=== PATIENT | female | born 1990 | race Caucasian/White ===

== ENCOUNTER 2018-04-09 08:29 | Day surgery (SDC) | payer MEDICAID ==
[~2018-04-09 08:29] MED LIST: Lactated Ringers 1,000 ML IV SCH
[2018-04-09] MEDS ORDERED: fentaNYL 100 MCG/2 ML SDV ONE (08:32)
[2018-04-09] MEDS ORDERED: Midazolam 1 MG/ML 2 ML SDV ONE (08:32)
[2018-04-09] MEDS ORDERED: Propofol 200 MG/20 ML SDV ONE (08:32)
[2018-04-09] MEDS ORDERED: Lidocaine 2% 5 ML SDV ONE (08:32)
--- NOTE | 2018-04-09 09:37 | PCM.PREANE ---
Preanesthetic Assessment - Anesthesia/Transfusion/Family Hx Anesthesia History: Prior Anesthesia Without Reaction Family History of Anesthesia Reaction: No Transfusion History: No Prior Transfusion(s) Intubation History: Unknown - Review of Systems General: No Symptoms Pulmonary: No Symptoms Cardiovascular: No Symptoms Neurological: No Symptoms Other: Reports: None - Physical Assessment NPO Status Date: 04/08/18 O2 Sat by Pulse Oximetry: 97 Respiratory Rate: 16 Vital Signs: Last Vital Signs Temp 36.2 C 04/09/18 09:15 Pulse 78 04/09/18 09:15 Resp 16 04/09/18 09:15 BP 125/81 04/09/18 09:15 Pulse Ox 97 04/09/18 09:15 Height: 1.57 m Weight: 86.183 kg ASA Class: 2 Mental Status: Alert & Oriented x3 Airway Class: Mallampati = 1 Dentition: Reports: Normal Dentition ROM/Head Extension: Full Lungs: Clear to Auscultation, Normal Respiratory Effort Cardiovascular: Regular Rate, Regular Rhythm - Lab Values: Laboratory Last Values Urine HCG, Qual NEGATIVE (NEGATIVE) 04/09/18 09:00 - Allergies Allergies/Adverse Reactions: Allergies Allergy/AdvReac Type Severity Reaction Status Date / Time latex Allergy Rash Verified 04/07/18 13:04 - Blood Blood Available: No - Anesthesia Plan Pre-Op Medication Ordered: None - Acknowledgements Anesthesia Type Planned: MAC Pt an Appropriate Candidate for the Planned Anesthesia: Yes Alternatives and Risks of Anesthesia Discussed w Pt/Guardian: Yes Pt/Guardian Understands and Agrees with Anesthesia Plan: Yes Additional Comments: PMH: IBS-C, PUD PLAN: MAC/TIVA PreAnesthesia Questionnaire HEENT History: Reports: Other (See Below) Other HEENT History: wears glasses Gastrointestinal History: Reports: Chronic Constipation, GERD Genitourinary History: Reports: None RN L AND D History: Reports: Endometriosis, Musculoskeletal History: Reports: None Neurological History: Reports: Migraines Psychiatric History: Reports: Anxiety, Depression Endocrine/Metabolic History: Reports: Obesity/BMI 30+ - Past Surgical History Head Surgeries/Procedures: Reports: None HEENT Surgical History: Reports: Adenoidectomy, Oral Surgery, Tonsillectomy GI Surgical History: Reports: Other (See Below) Other GI Surgeries/Procedures: I&D pilonidal cyst Female Surgical History: Reports: Section, LEEP, Other (See Below) Other Female Surgeries/Procedures: hx laparoscopy with lysis of adhesions Musculoskeletal Surgical History: Reports: Other (See Below) Other Musculoskeletal Surgeries/Procedures:: exc of rt ganglion cyst - SUBSTANCE USE Smoking Status *Q: Former Smoker Recreational Drug Use History: No - HOME MEDS Home Medications: Home Meds Lubiprostone [Amitiza] 8 mcg PO BID 01/08/18 [History] Dexlansoprazole [Dexilant] 60 mg PO DAILY 04/07/18 [History] Norethindrone-Ethinyl Estrad [Dasetta 1-35-28 Tablet] 1 tab PO DAILY 04/07/18 [ History] Vilazodone Hydrochloride [Viibryd] 40 mg PO DAILY 04/07/18 [History] - CURRENT (IN HOUSE) MEDS Current Meds: Current Medications Lactated Ringer's (Ringers, Lactated) 1,000 mls @ 125 mls/hr IV ASDIRECTED KHADIJAH Last Admin: 04/09/18 09:03 Dose: 125 mls/hr Discontinued Medications Fentanyl (Sublimaze) Confirm Administered Dose 100 mcg .ROUTE .STK-MED ONE Stop: 04/09/18 08:33 Lidocaine (Xylocaine-Mpf 2%) Confirm Administered Dose 5 ml .ROUTE .STK-MED ONE Stop: 04/09/18 08:33 Midazolam HCl (Versed 1 Mg/Ml) Confirm Administered Dose 2 mg .ROUTE .STK-MED ONE Stop: 04/09/18 08:33 Propofol (Diprivan 20 Ml) Confirm Administered Dose 400 mg .ROUTE .STK-MED ONE Stop: 04/09/18 08:33
--- NOTE | 2018-04-09 10:50 | PCM.OPNOTE ---
- General Post-Op/Procedure Note Date of Surgery/Procedure: 04/09/18 Operative Procedure(s): egd w bx Findings: see [id number] Pre Op Diagnosis: gerd Post-Op Diagnosis: Same Anesthesia Technique: Moderate Sedation Primary Surgeon: Carlos Davey Pathology: egd bx Complications: None Condition: Good
--- NOTE | 2018-04-09 10:55 | PCM.POSTAN ---
POST ANESTHESIA ASSESSMENT - MENTAL STATUS Mental Status: Alert, Oriented - RESPIRATORY Respiratory Status: Respiratory Rate WNL, Airway Patent, O2 Saturation Stable - CARDIOVASCULAR CV Status: Pulse Rate WNL, Blood Pressure Stable - GASTROINTESTINAL GI Status: No Symptoms - PAIN Pain Score: 0 - POST OP HYDRATION Hydration Status: Adequate & Stable
--- NOTE | 2018-04-09 13:20 | OR ---
SURGEON: Carlos Davey MD DATE OF PROCEDURE: 04/09/2018 PREOPERATIVE DIAGNOSES: 1. Acid reflux. 2. Abdominal pain. POSTOPERATIVE DIAGNOSES: 1. Acid reflux. 2. Abdominal pain. PROCEDURES PERFORMED: Esophagogastroduodenoscopy with biopsy. COMPLICATIONS: None. PROCEDURE IN DETAIL: EGD: The patient was taken to the endoscopy room, and with the [employer], Diprivan was administered. A well-lubricated EGD scope was gently inserted through the oropharynx, down the esophagus, passing through the gastroesophageal junction, into the stomach. The mucosa was examined upon the passage. Any etiology will be noted. Once in the stomach, we continued to advance to the distal antrum, passed through the pylorus into the second portion of the duodenum. Again, the mucosa was examined for any abnormality and etiology. The scope was then retrieved back to the stomach and then retroflexed to look at the fundus of the stomach. If a biopsy was indicated, we will biopsy the antrum, body, and gastroesophageal junction. The air will be sucked out while the scope is retrieved to reduce the patient's discomfort. The patient tolerated the procedure well. There were no intraoperative complications. Dr. Davey was present through the whole procedure. Prior to surgery, a time-out had been called, the patient identified, procedure identified and antibiotic administered. FINDINGS: 1. The patient is easily sedated with [employer] and Diprivan. The patient is soundly snoring. 2. Oropharynx and proximal esophagus are free of disease. The distal esophagus at GE junction shows salmon-colored change such as very mild acid reflux. Stomach rugae is normal in appearance, antrum is normal in appearance, and duodenum was grossly normal. Scope retrieved back to the stomach. Retroflexed look at the fundus of stomach, there was no hiatal hernia. Biopsy done at antrum, body, GE junction at 40 and sucked out the gas while scope coming out. NBA / KRYSTLE /[id number]
== END 2018-04-09 11:22 | disposition home or self-care (01) ==
LOC: MW.SDS 08:29
PROVIDERS: ATTEND Surgery
DX: K21.9 Gastro-esophageal reflux disease without esophagitis (principal); R10.13 Epigastric pain; F32.9 Major depressive disorder, single episode, unspecified; K58.9 Irritable bowel syndrome, unspecified; G43.909 Migraine, unspecified, not intractable, without status migrainosus; E66.9 Obesity, unspecified; Z68.34 Body mass index [BMI] 34.0-34.9, adult; F41.9 Anxiety disorder, unspecified; Z87.891 Personal history of nicotine dependence; Z87.11 Personal history of peptic ulcer disease; Z79.899 Other long term (current) drug therapy; Z88.8 Allergy status to other drugs, medicaments and biological substances; Z91.040 Latex allergy status
CPT/HCPCS: 43239; 81025; J2250; J2704; J3010; J7120

== ENCOUNTER 2023-03-12 07:43 | Emergency (ER) | payer BC ==
[2023-03-12] MEDS ORDERED: Ondansetron 4 MG/2 ML SDV IVPUSH ONE (07:57)
[2023-03-12] MEDS ORDERED: Sodium Chloride 0.9% 1,000 ML IV ONE (07:57)
[2023-03-12 08:10] LABS: BASOPHILS ABSOLUTE AUTO 0.07 K/uL (0.00-0.20); EOSINOPHILS ABSOLUTE AUTO 0.17 K/uL (0.00-0.45); EOSINOPHILS PERCENT AUTO 2.4 % (0.0-6.0); HEMATOCRIT 40.1 % (37.0-47.0); HEMOGLOBIN 13.2 g/dL (12.0-16.0); IMMATURE GRAN ABSOLUTE AUTO 0.01 K/uL (0.00-0.05); IMMATURE GRAN PERCENT AUTO 0.1 % (0.0-0.4); LYMPHOCYTES ABSOLUTE AUTO 2.66 K/uL (1.00-4.80); LYMPHOCYTES PERCENT AUTO 37.3 % (24.0-44.0); MEAN CORPUSCULAR HEMOGLOBIN 28.1 pg (28.0-32.0); MEAN CORPUSCULAR HGB CONC 32.9 g/dL (32.0-36.0); MEAN CORPUSCULAR VOLUME 85.3 fL (83.0-99.0); MEAN PLATELET VOLUME 9.1 fL (9.4-12.3); MONOCYTES ABSOLUTE AUTO 0.54 K/uL (0.00-0.80); MONOCYTES PERCENT AUTO 7.6 % (0.0-8.0); NEUTROPHILS ABSOLUTE AUTO 3.68 K/uL (1.80-7.70); NEUTROPHILS PERCENT AUTO 51.6 % (41.0-71.0); PLATELET COUNT,PLT 278 K/uL (150-400); WHITE BLOOD CELL COUNT,WBC 7.13 K/uL (3.9-11.3)
[2023-03-12 08:34] LABS: A/G RATIO 0.9 (0.9-1.6); ALBUMIN 3.5 g/dL (3.4-5.0); BILIRUBIN TOTAL 0.4 mg/dL (0.2-1.0); CARBON DIOXIDE,CO2 25.2 mmol/L (21.0-32.0); CREATININE 0.9 mg/dL (0.6-1.0); EST CRCL DRUG DOSING (CG) 70.32 mL/min; MAGNESIUM 1.8 mg/dL (1.8-2.4); POTASSIUM,K 3.7 mmol/L (3.5-5.1); PROTEIN TOTAL,TP 7.4 g/dL (6.4-8.2)
== END 2023-03-12 08:58 | disposition home or self-care (01) ==
LOC: MW.ED 07:43
DX: R10.31 Right lower quadrant pain (principal); K21.9 Gastro-esophageal reflux disease without esophagitis; E66.9 Obesity, unspecified; Z79.899 Other long term (current) drug therapy; Z91.040 Latex allergy status; Z88.8 Allergy status to other drugs, medicaments and biological substances; Z68.34 Body mass index [BMI] 34.0-34.9, adult
CPT/HCPCS: 36415; 80053; 83690; 83735; 84703; 85025; 96374; 99284; J2405; J7030; 82150

== ENCOUNTER 2023-12-08 06:28 | Inpatient (IN) | payer OTHER ==
[~2023-12-08 06:28] MED LIST changes: -Lactated Ringers 1,000 ML IV SCH; +Sodium Chloride 0.9% 10 ML Syringe FLUSH PRN; +Sodium Chloride 0.9% 2.5 ML Syringe FLUSH PRN; +Sodium Chloride 0.9% 20 ML SDV IV PRN; +ceFAZolin 2 GM in Sodium Chloride 0.9% 50 ML IV ONE
[2023-12-08] MEDS: Lactated Ringers 1,000 ML IV SCH (06:52)
[2023-12-08 06:57] LABS: HEMATOCRIT 43.1 % (37.0-47.0); HEMOGLOBIN 14.5 g/dL (12.0-16.0); MEAN CORPUSCULAR HEMOGLOBIN 30.2 pg (28.0-32.0); MEAN CORPUSCULAR HGB CONC 33.6 g/dL (32.0-36.0); MEAN CORPUSCULAR VOLUME 89.8 fL (83.0-99.0); MEAN PLATELET VOLUME 9.1 fL (9.4-12.3); PLATELET COUNT,PLT 325 K/uL (150-400); WHITE BLOOD CELL COUNT,WBC 12.77 K/uL (3.9-11.3)
[2023-12-08 07:12] LABS: CALCIUM 9.5 mg/dL (8.5-10.1); CARBON DIOXIDE,CO2 22.2 mmol/L (21.0-32.0); CREATININE 0.9 mg/dL (0.6-1.0); EST CRCL DRUG DOSING (CG) 69.66 mL/min; POTASSIUM,K 4.1 mmol/L (3.5-5.1)
[2023-12-08] MEDS: Scopalamine 1mg/3day Transdermal Patch TOP ONE (07:15)
[2023-12-08] MEDS ORDERED: propofoL 50 ML ONE ×2 (07:15→08:20)
[2023-12-08] MEDS ORDERED: fentaNYL 100 MCG/2 ML SDV ONE (07:17)
[2023-12-08] MEDS ORDERED: Water For Injection, Sterile 20 ML ONE (07:17)
[2023-12-08] MEDS ORDERED: dexmedeTOMIDine HCl 200 MCG/2 ML SDV ONE (07:17)
[2023-12-08] MEDS ORDERED: Rocuronium Bromide 50 MG/5 ML Syringe ONE (07:19)
[2023-12-08] MEDS ORDERED: Bupivacaine 0.25% 30 ML SDV ONE ×2 (07:22→07:28)
[2023-12-08] MEDS ORDERED: Methylene Blue 100 MG/10 ML SDV ONE (07:22)
[2023-12-08] MEDS ORDERED: Ropivacaine 0.5% 5 MG/ML 30 ML SDV ONE (07:28)
[2023-12-08] MEDS ORDERED: ceFAZolin 2 GM Vial ONE (08:18)
[2023-12-08] MEDS ORDERED: Ketamine HCL/NACL, ISO-OSM 50 MG/5 ML Syringe ONE (08:20)
[2023-12-08] MEDS ORDERED: Ondansetron 4 MG/2 ML SDV ONE (08:26)
[2023-12-08] MEDS ORDERED: Dexamethasone 4 MG/ML 5 ML MDV ONE (08:26)
[2023-12-08] MEDS ORDERED: Glycopyrrolate 0.2 MG/ML SDV ONE (08:46)
[2023-12-08] MEDS ORDERED: Fluorescein 5 ML Vial ONE (09:00)
[2023-12-08] MEDS ORDERED: Propofol 200 MG/20 ML SDV ONE ×2 (09:09→09:29)
[2023-12-08] MEDS ORDERED: Sugammadex Sodium 200 MG/2 ML VIAL IV ONE (09:20)
[2023-12-08] MEDS ORDERED: Ketorolac 30 MG/ML SDV ONE (09:20)
[2023-12-08] MEDS ORDERED: Tranexamic Acid 1,000 MG/10 ML Vial ONE (09:29)
[2023-12-08] MEDS ORDERED: Promethazine 25 MG/ML SDV IM PRN (09:52)
[2023-12-08] MEDS ORDERED: Ondansetron 4 MG/2 ML SDV IVPUSH PRN ×2 (09:52→10:29)
[2023-12-08] MEDS ORDERED: Lactated Ringers 1,000 ML IV SCH (10:00)
[2023-12-08] MEDS ORDERED: Acetaminophen 1,000 MG in Premix Bag 1 BAG IV SCH (10:00)
[2023-12-08] MEDS ORDERED: Albuterol 0.083% 2.5 MG/3 ML Neb Soln NEB PRN (10:29)
[2023-12-08] MEDS ORDERED: Phenylephrine HCl In 0.9% NaCl 1 MG/10 ML Syringe IVPUSH PRN (10:29)
[2023-12-08] MEDS ORDERED: droPERidol 5 MG/2 ML SDV IVPUSH PRN (10:29)
[2023-12-08] MEDS ORDERED: Naloxone 0.4 MG/ML SDV IVPUSH PRN (10:29)
[2023-12-08] MEDS ORDERED: Metoclopramide 10 MG/2 ML SDV IVPUSH PRN (10:29)
[2023-12-08] MEDS: HYDROmorphone 1 MG/ML Syringe IVPUSH PRN (10:33)
[2023-12-08] MEDS: fentaNYL 50 MCG/ML SDV IVPUSH PRN (10:34)
[2023-12-08] MEDS: Morphine 2 MG/ML SYRINGE IVPUSH PRN (12:36)
[2023-12-08] MEDS: Acetaminophen 1,000 MG in Premix Bag 1 BAG IV SCH (14:41)
[2023-12-08] MEDS: oxyCODONE 5 MG Tab PO PRN ×2 (17:07→23:10)
[2023-12-08] MEDS: Morphine 4 MG/ML Syringe IVPUSH PRN (19:33)
[2023-12-08] MEDS: Docusate Sodium 100 MG Cap PO SCH (21:05)
[2023-12-09 05:33] LABS: BASOPHILS ABSOLUTE AUTO 0.03 K/uL (0.00-0.20); BASOPHILS PERCENT AUTO 0.2 % (0.0-1.0); EOSINOPHILS ABSOLUTE AUTO 0.06 K/uL (0.00-0.45); EOSINOPHILS PERCENT AUTO 0.4 % (0.0-6.0); HEMATOCRIT 36.8 % (37.0-47.0); HEMOGLOBIN 12.2 g/dL (12.0-16.0); IMMATURE GRAN ABSOLUTE AUTO 0.03 K/uL (0.00-0.05); IMMATURE GRAN PERCENT AUTO 0.2 % (0.0-0.4); LYMPHOCYTES ABSOLUTE AUTO 3.39 K/uL (1.00-4.80); LYMPHOCYTES PERCENT AUTO 24.6 % (24.0-44.0); MEAN CORPUSCULAR HEMOGLOBIN 29.8 pg (28.0-32.0); MEAN CORPUSCULAR HGB CONC 33.2 g/dL (32.0-36.0); MEAN PLATELET VOLUME 9.2 fL (9.4-12.3); MONOCYTES ABSOLUTE AUTO 1.18 K/uL (0.00-0.80); MONOCYTES PERCENT AUTO 8.6 % (0.0-8.0); NEUTROPHILS ABSOLUTE AUTO 9.07 K/uL (1.80-7.70); PLATELET COUNT,PLT 261 K/uL (150-400); RED BLOOD CELL COUNT 4.09 M/uL (4.10-5.30); WHITE BLOOD CELL COUNT,WBC 13.76 K/uL (3.9-11.3)
[2023-12-09 05:52] LABS: CALCIUM 8.6 mg/dL (8.5-10.1); CARBON DIOXIDE,CO2 25.9 mmol/L (21.0-32.0); CREATININE 0.8 mg/dL (0.6-1.0); EST CRCL DRUG DOSING (CG) 78.37 mL/min
== END 2023-12-09 10:39 | disposition home or self-care (01) | DRG 741 ==
LOC: MW.SDS 06:28 → MW.OB 14:50
PROVIDERS: ADMIT Obstetrics & Gynecology; ATTEND Obstetrics & Gynecology
PROC: 0UT98ZZ Resection of Uterus, Via Natural or Artificial Opening Endoscopic (ICD-10-PCS; principal; 2023-12-08 08:00)
DX: D06.9 Carcinoma in situ of cervix, unspecified (principal); N80.00 Endometriosis of the uterus, unspecified; K21.9 Gastro-esophageal reflux disease without esophagitis; E66.9 Obesity, unspecified; F41.9 Anxiety disorder, unspecified; F32.A Depression, unspecified; G43.909 Migraine, unspecified, not intractable, without status migrainosus; K59.09 Other constipation; Z87.11 Personal history of peptic ulcer disease; Z97.3 Presence of spectacles and contact lenses; Z90.49 Acquired absence of other specified parts of digestive tract; Z90.89 Acquired absence of other organs; Z98.890 Other specified postprocedural states; Z79.899 Other long term (current) drug therapy
CPT/HCPCS: 00944; 36415; 64488; 80048; 84703; 85025; 85027; 86850; 86900; 86901; A9270-GY; C1729; J0131; J0665; J0690; J1100; J1170; J1596; J1885; J2270; J2405; J2704; J2795; J3010; J3490; J7120; Q9968